=== PATIENT | male | born 1945 ===

== ENCOUNTER 2024-11-30 09:07 | Day surgery (SDC) | payer MEDICARE ==
[2024-11-30] VITALS (13 sets, daily range): BP systolic 92–123; BP diastolic 56–83; PULSE 56–67; RESP 12–15; TEMP 98.4; O2SAT 94–99
[~2024-11-30] VITALS: Ht 193 cm; Wt 127.5 kg
[2024-11-30] MEDS ORDERED: AMLO5TAB16 PO (09:50)
[2024-11-30] MEDS ORDERED: PRAV40TA3 PO (09:50)
[2024-11-30] MEDS ORDERED: FLEC100T PO (09:50)
[2024-11-30] MEDS ORDERED: LOSA50TA64 PO (09:50)
[2024-11-30] MEDS ORDERED: APIX5TAB3 PO (09:50)
[2024-11-30] MEDS ORDERED: POTA-207 PO (09:50)
[2024-11-30] MEDS ORDERED: METO-395 PO (09:50)
[2024-11-30] MEDS ORDERED: OMEP40CA21 PO (09:50)
[2024-11-30] MEDS ORDERED: FLO0.4C PO (09:50)
[2024-11-30] MEDS ORDERED: FURO40TA4 PO (09:50)
[2024-11-30 10:18] LABS: BASOPHILS % (AUTO) 0.5 % (0-1); EOSINOPHILS # (AUTO) 0.3 X10'3 (0-0.9); EOSINOPHILS % (AUTO) 4.8 % (0-6); HEMATOCRIT 39.9 % (42.0-52.0); HEMOGLOBIN 13.5 g/dl (14.0-17.9); LYMPHOCYTES # (AUTO) 1.2 X10'3 (1.1-4.8); MEAN CORPUSCULAR HEMOGLOBIN 30.7 PG (27.0-31.0); MEAN CORPUSCULAR VOLUME 90.4 FL (78-98); MEAN PLATELET VOLUME 8.3 FL (7.4-10.4); MONOCYTES # (AUTO) 0.5 X10'3 (0-0.9); MONOCYTES % (AUTO) 8.6 % (2-12); NEUTROPHILS # (AUTO) 4.1 X10'3 (1.8-7.7); NEUTROPHILS % (AUTO) 66.1 % (42-75); PLATELET COUNT 230 X10'3 (140-440); RED BLOOD COUNT 4.41 X10'6 (4.70-6.10); RED CELL DISTRIBUTION WIDTH 14.1 % (11.5-14.5); WHITE BLOOD COUNT 6.1 X10'3 (4.5-11.0)
[2024-11-30] MEDS: MIDAZolam 1mg/ml 10ml vial IV ONE (10:39)
[2024-11-30] MEDS: normal saline 1000ml 1,000 ML IV SCH (10:40)
[2024-11-30] MEDS: fentaNYL/PF 50MCG/1 ML 2ML syringe IV ONE (10:40)
[2024-11-30 10:44] LABS: INR 1.1 INR; PROTHROMBIN TIME 11.9 SECONDS (9.0-12.0)
[2024-11-30 10:46] LABS: ALBUMIN 3.2 G/DL (3.4-5.0); ANION GAP 5 (8-16); BLOOD UREA NITROGEN 12 MG/DL (7-18); BUN/CREATININE RATIO 10.3 (10.0-20.0); CALCIUM 8.4 MG/DL (8.5-10.1); CHLORIDE 108 MMOL/L (99-107); CREATININE 1.16 MG/DL (0.60-1.10); GLUCOSE 107 MG/DL (70-104); MAGNESIUM 3.3 MG/DL (1.5-2.4); POTASSIUM 4.2 MMOL/L (3.5-5.1); SODIUM 140 MMOL/L (135-145); TOTAL CARBON DIOXIDE 27.1 MMOL/L (24-32); eCRCL 61 ML/MIN; eGFR 60 ML/MIN
== END 2024-11-30 12:55 | disposition home or self-care (01) ==
LOC: SSTAY O 09:07
PROVIDERS: ATTEND Internal Medicine Cardiovascular Disease
DX: I48.0 Paroxysmal atrial fibrillation (principal); I10 Essential (primary) hypertension; F41.9 Anxiety disorder, unspecified; E78.5 Hyperlipidemia, unspecified; I87.2 Venous insufficiency (chronic) (peripheral); N40.0 Benign prostatic hyperplasia without lower urinary tract symptoms; Z79.82 Long term (current) use of aspirin; Z79.899 Other long term (current) drug therapy
CPT/HCPCS: 36415; 80048; 83735; 85025; 85610; 92960; 93005; J2250; J3010; J7030; Z7610